=== PATIENT | male | born 1955 | race Caucasian/White ===

== ENCOUNTER 2019-08-04 15:05 | Inpatient (IN) | payer BC ==
[~2019-08-04] VITALS: Ht 170.2 cm; Wt 96.6 kg
[2019-08-04 16:42] LABS: BASOPHILS % 1.1 % (0.0-2.0); EOSINOPHILS % 0.3 % (0.0-5.0); HEMATOCRIT. 37.7 % (42.0-52.0); LYMPHOCYTES % 11.8 % (20.0-50.0); MEAN CORPUSCULAR HEMOGLOBIN 30.7 pg (28.0-32.0); MEAN CORPUSCULAR VOLUME 89.3 fL (80.0-94.0); MEAN PLATELET VOLUME 7.1 fl (7.4-10.4); NEUTROPHILS % 78.8 % (40.0-76.0); PLATELET 200 x1000/uL (130-400); RED BLOOD CELL COUNT 4.22 mill/uL (4.7-6.1); RED CELL DISTRIBUTION WIDTH 14.7 % (11.6-14.6)
[2019-08-04 16:52] LABS: PROTHROMBIN TIME 10.6 sec (9.6-11.0)
[2019-08-04 16:56] LABS: CHLORIDE 108 mEq/L (98-107)
[2019-08-04 16:59] LABS: ETHANOL BLOOD < 10 mg/dL
[2019-08-04 17:05] LABS: CREATINE KINASE 482 IU/L (39-308)
[2019-08-04 20:14] LABS: CLARITY URINE CLEAR (CLEAR); COLOR URINE YELLOW (YELLOW); KETONES URINE NEGATIVE (NEGATIVE); LEUKOCYTE ESTERASE URINE NEGATIVE (NEGATIVE); NITRITE URINE NEGATIVE (NEGATIVE); OCCULT BLOOD URINE NEGATIVE (NEGATIVE); PH URINE 6.5 (4.5-8.0); PROTEIN URINE NEGATIVE (NEGATIVE); UROBILINOGEN URINE 0.2 E.U./dL (0.2-1.0)
[2019-08-04] MEDS ORDERED: MANNITOL 12.5G (25%) VIAL 50ML IV ONE (20:30)
[2019-08-04] MEDS ORDERED: DEXAMETHASONE 10 MG/ML VIAL IV ONE (20:30)
[2019-08-04] MEDS ORDERED: LEVETIRACETAM 1000MG/100ML 100 ML IV ONE (20:30)
[2019-08-04 20:36] LABS: *AMPHETAMINES SCREEN URINE NEGATIVE (NEGATIVE); *BARBITURATES SCREEN URINE NEGATIVE (NEGATIVE); *BENZODIAZEPINES SCREEN URINE NEGATIVE (NEGATIVE); *COCAINE SCREEN URINE NEGATIVE (NEGATIVE)
[2019-08-04 20:37] LABS: CANNABINOID URINE SCREEN NEGATIVE (NEGATIVE); METHADONE URINE SCREEN NEGATIVE (NEGATIVE); OPIATES URINE SCREEN NEGATIVE (NEGATIVE); PHENCYCLIDINE URINE SCREEN NEGATIVE (NEGATIVE)
[2019-08-04] MEDS ORDERED: LEVETIRACETAM 500 MG in SODIUM CHLORIDE 0.9% 100 ML IV SCH (21:15)
[2019-08-04] MEDS ORDERED: ONDANSETRON HCL 4MG/2ML INJ IV PRN (21:15)
[2019-08-04] MEDS ORDERED: LIDOCAINE HCL/EPINEPHRINE 1%-EPI 1:100,000 20 ML VIAL ONE (21:36)
[2019-08-04] MEDS ORDERED: THROMBIN (BOVINE) 5000 UNITS/VIAL TOP ONE (21:36)
[2019-08-04] MEDS ORDERED: BACITRACIN 50,000 UNITS/VIAL ONE (21:37)
[2019-08-04] MEDS ORDERED: LEVETIRACETAM 500MG PREMIX 100 ML IV SCH (22:00)
[2019-08-04] MEDS ORDERED: DEXAMETHASONE 10 MG/ML VIAL IV SCH (22:00)
[2019-08-04] MEDS ORDERED: CEFAZOLIN SODIUM 1000MG/VIAL IV SCH (22:00)
[2019-08-04] MEDS ORDERED: PROPOFOL 200MG/20ML VIAL IV ONE (22:09)
[2019-08-04] MEDS ORDERED: ROCURONIUM BROMIDE 10MG/ML VIAL 5ML IV ONE ×2 (22:09→23:26)
[2019-08-04] MEDS ORDERED: FENTANYL CITRATE/PF 50MCG/ML 2ML VIAL ONE (22:09)
[2019-08-04] MEDS ORDERED: MIDAZOLAM HCL 2 MG/2 ML VIAL ONE (22:09)
[2019-08-04] MEDS: DEXT 5%/LACTATED RINGERS 1,000 ML IV SCH (22:15)
[2019-08-04] MEDS ORDERED: NICARDIPINE 100 MG in SODIUM CHLORIDE 0.9% 60 ML IV PRN (22:30)
[2019-08-04] MEDS ORDERED: ONDANSETRON HCL 4MG/2ML INJ ONE (23:08)
[2019-08-04] MEDS ORDERED: SUCCINYLCHOLINE CHLORIDE 200MG/10ML IV ONE (23:08)
[2019-08-04] MEDS ORDERED: LABETALOL HCL 5MG/ML VIAL 20ML IV ONE (23:08)
[2019-08-04] MEDS ORDERED: METOCLOPRAMIDE HCL 10MG/2ML VIAL ONE (23:08)
[2019-08-04] MEDS ORDERED: EPHEDRINE SULFATE 50MG/ML VIAL ONE (23:21)
[2019-08-04 23:36] VITALS: BP 110/73
[2019-08-04 23:45] VITALS: BP_SYST 118; BP_SYST 95; BP_DIAS 22; BP_DIAS 71
[2019-08-05] VITALS (90 sets, daily range): BP systolic 95–188; BP diastolic 47–120
[2019-08-05] MEDS ORDERED: DEXAMETHASONE 10 MG/ML VIAL IV SCH
[2019-08-05] MEDS: MORPHINE SULFATE 4 MG/ML CPJ (NOT FOR IM USE) IV PRN (00:44)
[2019-08-05 01:11] LABS: BG BASE EXCESS -3.6 mmol/L (-2.0-2.0); BG CARBOXYHEMOGLOBIN 0.9 % (0.5-1.5); BG DEOXYHEMOGLOBIN 4.9 % (0.0-5.0); BG FRACTION INSPIRED OXYGEN 50; BG HCO3 ACT 24.4 mmol/L (22.0-26.0); BG METHEMOGLOBIN 0.4 % (0.0-1.5); BG OXYHEMOGLOBIN 93.8 % (94.0-97.0); BG PCO2 56.5 mmHg (35.0-45.0); BG PH 7.253 (7.350-7.450); BG PO2 84.3 mmHg (75.0-100.0); BG SAMPLE SITE A-LINE; BG TIDAL VOLUME(mL) 550 mL; BG TOTAL HEMOGLOBIN 13.8 g/dL (12.0-18.0); BG VENT MODE VENT - A/C; BG VENT RATE 12 set
[2019-08-05] MEDS ORDERED: PROPOFOL 10MG/ML 100ML 100 ML IV PRN (01:30)
[2019-08-05] MEDS: CEFAZOLIN 1000MG PREMIX 50 ML IV SCH ×3 (02:03→16:56)
[2019-08-05 05:56] LABS: BASOPHILS % 0.3 % (0.0-2.0); EOSINOPHILS % 0.1 % (0.0-5.0); HEMATOCRIT. 36.1 % (42.0-52.0); HEMOGLOBIN. 12.3 g/dL (14.0-18.0); LYMPHOCYTES % 8.5 % (20.0-50.0); MEAN CORPUSCULAR HEMOGLOBIN 30.9 pg (28.0-32.0); MEAN CORPUSCULAR VOLUME 90.6 fL (80.0-94.0); MEAN PLATELET VOLUME 8.1 fl (7.4-10.4); MONOCYTES % 1.6 % (2.0-8.0); NEUTROPHILS % 89.5 % (40.0-76.0); PLATELET 187 x1000/uL (130-400); RED BLOOD CELL COUNT 3.98 mill/uL (4.7-6.1); RED CELL DISTRIBUTION WIDTH 14.7 % (11.6-14.6)
[2019-08-05 06:02] LABS: CHLORIDE 107 mEq/L (98-107)
[2019-08-05] MEDS: PANTOPRAZOLE SODIUM 40 MG/VIAL IV SCH (08:45)
[2019-08-05] MEDS ORDERED: LEVETIRACETAM 500MG PREMIX 100 ML IV SCH (09:00)
[2019-08-05] MEDS ORDERED: PANTOPRAZOLE SODIUM 40 MG/VIAL IV SCH (09:00)
[2019-08-05] MEDS ORDERED: IPRATROPIUM/ALBUTEROL 0.5-3(2.5)MG/3ML NEB HHN PRN (10:45)
[2019-08-05 10:48] LABS: BG BASE EXCESS -2.1 mmol/L (-2.0-2.0); BG CARBOXYHEMOGLOBIN 0.6 % (0.5-1.5); BG DEOXYHEMOGLOBIN 0.6 % (0.0-5.0); BG FRACTION INSPIRED OXYGEN 40; BG HCO3 ACT 21.4 mmol/L (22.0-26.0); BG METHEMOGLOBIN 0.3 % (0.0-1.5); BG OXYGEN SATURATION 99.4 % (92.0-98.5); BG OXYHEMOGLOBIN 98.5 % (94.0-97.0); BG PCO2 32.7 mmHg (35.0-45.0); BG PH 7.434 (7.350-7.450); BG PO2 172.7 mmHg (75.0-100.0); BG PRESSURE SUPPORT 8; BG SAMPLE SITE A-LINE; BG TOTAL HEMOGLOBIN 12.5 g/dL (12.0-18.0); BG VENT MODE VENT - CPAP
[2019-08-05] MEDS: LEVETIRACETAM 500MG PREMIX 100 ML IV SCH ×2 (10:48→22:21)
[2019-08-05] MEDS: IPRATROPIUM/ALBUTEROL 0.5-3(2.5)MG/3ML NEB HHN SCH ×2 (16:43→20:35)
[2019-08-05] MEDS: DEXT 5%/LACTATED RINGERS 1,000 ML IV SCH (16:56)
[2019-08-06] VITALS (98 sets, daily range): BP systolic 93–173; BP diastolic 41–121
[2019-08-06] MEDS: IPRATROPIUM/ALBUTEROL 0.5-3(2.5)MG/3ML NEB HHN SCH ×4 (01:42→21:06)
[2019-08-06] MEDS: PANTOPRAZOLE SODIUM 40 MG/VIAL IV SCH (08:19)
[2019-08-06] MEDS: DEXT 5%/LACTATED RINGERS 1,000 ML IV SCH (08:19)
[2019-08-06] MEDS: LEVETIRACETAM 500MG PREMIX 100 ML IV SCH ×2 (08:19→21:23)
[2019-08-06] MEDS: MORPHINE SULFATE 4 MG/ML CPJ (NOT FOR IM USE) IV PRN ×3 (08:20→16:41)
[2019-08-06] MEDS ORDERED: KCL 20MEQ/100ML PREMIX 100 ML IV SCH (17:00)
[2019-08-07] VITALS (49 sets, daily range): BP systolic 97–163; BP diastolic 33–109
[2019-08-07] MEDS: DEXT 5%/LACTATED RINGERS 1,000 ML IV SCH (00:15)
[2019-08-07] MEDS: IPRATROPIUM/ALBUTEROL 0.5-3(2.5)MG/3ML NEB HHN SCH ×2 (02:05→07:42)
[2019-08-07] MEDS: MORPHINE SULFATE 4 MG/ML CPJ (NOT FOR IM USE) IV PRN (03:13)
[2019-08-07 05:34] LABS: CHLORIDE 106 mEq/L (98-107)
[2019-08-07 05:36] LABS: HEMATOCRIT 34.2 % (42.0-52.0); HEMOGLOBIN 11.5 g/dL (14.0-18.0); MEAN CORPUSCULAR HEMOGLOBIN 30.6 pg (28.0-32.0); MEAN CORPUSCULAR VOLUME 90.9 fL (80.0-94.0); PLATELET 182 x1000/uL (130-400); RED BLOOD CELL COUNT 3.77 mill/uL (4.7-6.1); RED CELL DISTRIBUTION WIDTH 14.7 % (11.6-14.6)
[2019-08-07] MEDS: LEVETIRACETAM 500MG PREMIX 100 ML IV SCH (08:27)
[2019-08-07] MEDS: PANTOPRAZOLE SODIUM 40 MG/VIAL IV SCH (08:27)
[2019-08-07] MEDS ORDERED: MAGNESIUM HYDROXIDE 400MG/5ML 30ML UDC PO PRN (13:45)
[2019-08-07] MEDS ORDERED: ACETAMINOPHEN 650MG/20.3ML UDC PO PRN (13:45)
[2019-08-07] MEDS ORDERED: CLONIDINE 0.1MG TABLET PO PRN (13:45)
[2019-08-07] MEDS: QUETIAPINE FUMARATE 25MG TABLET PO SCH ×2 (14:02→21:12)
[2019-08-07] MEDS ORDERED: BUDESONIDE 0.5MG/2ML NEB HHN SCH (18:00)
[2019-08-07] MEDS ORDERED: DIPHENHYDRAMINE 50MG/ML VIAL IV PRN (20:45)
[2019-08-07] MEDS ORDERED: LORAZEPAM 2MG/ML CPJ IV PRN (20:45)
[2019-08-07] MEDS ORDERED: HALOPERIDOL LACTATE 5MG/ML VIAL IM PRN (20:45)
[2019-08-07] MEDS: LEVETIRACETAM 500MG TABLET PO SCH (21:12)
[2019-08-07] MEDS: FAMOTIDINE 20MG TABLET PO SCH (21:13)
[2019-08-07] MEDS: IPRATROPIUM/ALBUTEROL 0.5-3(2.5)MG/3ML NEB HHN PRN (21:37)
[2019-08-08] VITALS (7 sets, daily range): BP systolic 92–129; BP diastolic 47–87
[2019-08-08] MEDS: IPRATROPIUM/ALBUTEROL 0.5-3(2.5)MG/3ML NEB HHN PRN ×3 (03:43→15:39)
[2019-08-08] MEDS: LEVETIRACETAM 500MG TABLET PO SCH ×2 (09:28→21:00)
[2019-08-08] MEDS: QUETIAPINE FUMARATE 25MG TABLET PO SCH ×2 (09:28→21:00)
[2019-08-08] MEDS: FAMOTIDINE 20MG TABLET PO SCH (21:00)
[2019-08-09] VITALS: BP 119/80
[2019-08-09 04:00] VITALS: BP 137/81
[2019-08-09 08:00] VITALS: BP 120/83
[2019-08-09] MEDS: QUETIAPINE FUMARATE 25MG TABLET PO SCH ×2 (08:30→21:05)
[2019-08-09] MEDS: LEVETIRACETAM 500MG TABLET PO SCH ×2 (08:30→21:05)
[2019-08-09 12:00] VITALS: BP 129/80
[2019-08-09 16:00] VITALS: BP 129/87
[2019-08-09 20:00] VITALS: BP 124/81
[2019-08-09] MEDS: FAMOTIDINE 20MG TABLET PO SCH (21:05)
[2019-08-10] VITALS: BP 117/79
[2019-08-10 04:00] VITALS: BP 122/85
[2019-08-10 08:00] VITALS: BP 119/79
[2019-08-10] MEDS: LEVETIRACETAM 500MG TABLET PO SCH ×2 (09:03→21:35)
[2019-08-10] MEDS: QUETIAPINE FUMARATE 25MG TABLET PO SCH ×2 (09:03→21:36)
[2019-08-10 12:00] VITALS: BP 129/81
[2019-08-10 16:00] VITALS: BP 119/85
[2019-08-10 20:00] VITALS: BP 117/78
[2019-08-10] MEDS: FAMOTIDINE 20MG TABLET PO SCH (21:36)
[2019-08-11] VITALS: BP 143/89
[2019-08-11 04:00] VITALS: BP 121/90
[2019-08-11 08:16] VITALS: BP 115/89
[2019-08-11] MEDS: QUETIAPINE FUMARATE 25MG TABLET PO SCH ×2 (08:46→21:42)
[2019-08-11] MEDS: LEVETIRACETAM 500MG TABLET PO SCH ×2 (08:46→21:42)
[2019-08-11 12:00] VITALS: BP 109/80
[2019-08-11 16:00] VITALS: BP 106/83
[2019-08-11 20:00] VITALS: BP 112/78
[2019-08-11] MEDS: FAMOTIDINE 20MG TABLET PO SCH (21:42)
[2019-08-12] VITALS: BP 110/74
[2019-08-12 04:00] VITALS: BP 118/75
[2019-08-12 08:00] VITALS: BP 112/77
[2019-08-12] MEDS: LEVETIRACETAM 500MG TABLET PO SCH (08:53)
[2019-08-12] MEDS: QUETIAPINE FUMARATE 25MG TABLET PO SCH (08:53)
[2019-08-12 10:26] VITALS: BP 112/77
[2019-08-12 12:00] VITALS: BP 114/71
== END 2019-08-12 13:10 | disposition home or self-care (01) | DRG 25 ==
LOC: ER 15:05 → EDBEDREQ 20:52 → MICUSO 21:38 → MICUNO 23:29 → 6EST 08-07 18:10
PROVIDERS: ADMIT Internal Medicine; ATTEND Internal Medicine
PROC: 009430Z Drainage of Intracranial Subdural Space with Drainage Device, Percutaneous Approach (ICD-10-PCS; principal; 2019-08-04)
PROC: 00C40ZZ Extirpation of Matter from Intracranial Subdural Space, Open Approach (ICD-10-PCS; 2019-08-04)
PROC: 00U Central Nervous System and Cranial Nerves, Supplement (ICD-10-PCS; 2019-08-04)
PROC: 0NU Head and Facial Bones, Supplement (ICD-10-PCS; 2019-08-04)
PROC: 00H032Z Insertion of Monitoring Device into Brain, Percutaneous Approach (ICD-10-PCS; 2019-08-04)
PROC: 4A103BD Monitoring of Intracranial Pressure, Percutaneous Approach (ICD-10-PCS; 2019-08-04)
DX: I62.03 Nontraumatic chronic subdural hemorrhage (principal); G93.41 Metabolic encephalopathy; J84.9 Interstitial pulmonary disease, unspecified; G20 Parkinson's disease; D64.9 Anemia, unspecified; I10 Essential (primary) hypertension; Z86.73 Personal history of transient ischemic attack (TIA), and cerebral infarction without residual deficits
CPT/HCPCS: 36415; 36600; 71045; 80048; 80053; 80305; 80307; 80320; 80329; 81003; 82375; 82550; 82805; 82962; 83880; 84443; 84478; 84484; 85025; 85027; 87070; 87075; 88304; 92610; 93005; 94002; 94640; 96365; 97116; 97162; 97166; 97530; 97535; 99291; C9113; J0330; J0690; J1100; J1200; J1630; J1953; J2150; J2250; J2270; J2405; J2704; J2765; J3010; J3480; J3490; J7030; J7121; G0480

== ENCOUNTER 2019-09-03 08:56 | Emergency (ER) | payer BC ==
[~2019-09-03] VITALS: Ht 175.3 cm; Wt 100.0 kg
[2019-09-03 09:12] VITALS: BP 132/80
== END 2019-09-03 10:16 | disposition home or self-care (01) ==
LOC: ER 09:22
DX: Z48.00 Encounter for change or removal of nonsurgical wound dressing (principal)
CPT/HCPCS: 99281